=== PATIENT | female | born 2000 | race Caucasian/White ===

== ENCOUNTER 2023-08-17 09:34 | Emergency (ER) | payer OTHER, SELFPAY ==
[2023-08-17 09:44] VITALS: BP 138/91; PULSE 115; RESP 16; TEMP 37.1; O2SAT 98
[2023-08-17 09:59] VITALS: BP 138/91; PULSE 115; RESP 16; TEMP 37.1; O2SAT 98
--- NOTE | 2023-08-17 10:07 | ED.URI ---
HPI - URI/Sore Throat General Chief Complaint: Upper Respiratory Infection Stated Complaint: Sore Throat/Fever/Congestion Time Seen by Provider: 08/17/23 09:55 Source: patient and RN notes reviewed Mode of arrival: ambulatory Limitations: no limitations History of Present Illness HPI Narrative: Patient presents today complaining of a 3 day history of cough, congestion, rhinorrhea, sore throat, right ear clogging, headache, fatigue. Denies fever shortness of breath. Currently rates her pain 4/10 and has tried DayQuil, ibuprofen, Sudafed, Jennifer-Wallaceton Plus with mild relief. Patient smokes and vapes. Related Data Home Medications Medication Instructions Recorded Confirmed alprazolam 0.25 mg tablet 0.25 mg PO DAILY 08/17/23 08/17/23 bupropion HCl 300 mg 24 hr tablet, 300 mg PO DAILY 08/17/23 08/17/23 extended release dextroamphetamine-amphetamine ER 1 cap PO DAILY 08/17/23 08/17/23 25 mg 24hr capsule,extend release lamotrigine 150 mg tablet 150 mg PO DAILY 08/17/23 08/17/23 propranolol 120 mg capsule,24 120 mg PO DAILY 08/17/23 08/17/23 hr,extended release serdexmethylphenidate 52.3 1 cap PO DAILY 08/17/23 08/17/23 mg-dexmethylphenidate 10.4 mg capsule (Azstarys) Allergies Allergy/AdvReac Type Severity Reaction Status Date / Time No Known Allergies Allergy Verified 08/17/23 09:59 Review of Systems Review of Systems: CONSTITUTIONAL: Denies body aches, fever, chills, or sweats.+ fatigue EYES: Denies visual changes, redness, or discharge. ENT: + congestion, rhinorrhea, sore throat, right ear clogging CARDIOVASCULAR: Denies chest pain, palpitations, or edema. RESPIRATORY: Denies dyspnea.+ cough GASTROINTESTINAL: Denies abdominal pain, nausea, vomiting, or diarrhea. GENITOURINARY: Denies dysuria or hematuria. SKIN: Denies rash, itching, or wounds. MUSCULOSKELETAL: Denies back pain, joint pain, or myalgia. NEUROLOGIC: Denies numbness, tingling, or weakness.+ headache PSYCH: Denies depression or anxiety. FORMERLY [facility], [facility] Social History Social History (Updated 08/17/23 @ 10:09 by Tania Johnson, [facility], ) Smoking status: Current every day smoker Tobacco type: cigarettes and e-cigarettes/vaping Comments At time of signature, I have reviewed and agree with nursing past medical, surgical, social and family history unless otherwise noted. Please see nursing chart for further information. There is no relevant family history pertinent to the presenting complaint Exam Narrative: GENERAL: Well-appearing, well-nourished, and in no acute distress. HEAD: Normocephalic, atraumatic. EYES: EOMI. No redness or drainage. Conjunctivae normal. ENT: Mucous membranes pink and moist. Nares congested with rhinorrhea. TMs normal bilaterally. Throat mildly erythematous without edema or exudate. Uvula midline. NECK: Normal AROM. Supple. No lymphadenopathy. CHEST: No respiratory distress. Clear to auscultation. HEART: Regular rate and rhythm. No murmur appreciated. EXTREMITIES: Normal range of motion. No edema. SKIN: Warm, dry, no rash. Capillary refill normal. Normal skin turgor. NEURO: No focal deficits. Alert and oriented x3. Gait steady. PSYCH: Normal affect. No signs of depression or anxiety. Course Course Level of Care: Express Care Visit Vital Signs Vital signs: Vital Signs Temperature 98.7 F 08/17/23 09:44 Pulse Rate 115 H 08/17/23 09:44 Respiratory Rate 16 08/17/23 09:44 Blood Pressure 138/91 H 08/17/23 09:44 Pulse Oximetry 98 08/17/23 09:44 Oxygen Delivery Room Air 08/17/23 09:44 Temperature 98.7 F 08/17/23 09:59 Pulse Rate 115 H 08/17/23 09:59 Respiratory Rate 16 08/17/23 09:59 Blood Pressure 138/91 H 08/17/23 09:59 Pulse Oximetry 98 08/17/23 09:59 Oxygen Delivery Room Air 08/17/23 09:59 Reviewed MDM - URI/Sore Throat MDM Narrative Medical decision making narrative: Rapid strep negative. Culture pending. Symptoms likely viral in etiology.
== END 2023-08-17 10:13 | disposition home or self-care (01) ==
PROVIDERS: Emergency Provider Nurse Practitioner
DX: J06.9 Acute upper respiratory infection, unspecified (principal); F17.210 Nicotine dependence, cigarettes, uncomplicated; F17.290 Nicotine dependence, other tobacco product, uncomplicated
CPT/HCPCS: 87081; 87880; 99213; G0463